=== PATIENT | female | born 1955 | race Caucasian/White ===

== ENCOUNTER 2020-03-18 00:33 | Observation (INO) | payer BC ==
[~2020-03-18] VITALS: Ht 180.3 cm; Wt 119.0 kg
--- NOTE | 2020-03-18 01:20 | NUR ---
BY WC TO ROOM
[2020-03-18 02:13] LABS: HEMATOCRIT 44.7 % (37.0-47.0); HEMOGLOBIN 13.9 g/dl (12.0-16.0); IMMATURE GRANULOCYTES 0.3 % (0.0-5.0); MEAN CELL VOLUME 95.1 fL CALC (80.0-100.0); MEAN CORPUSCULAR HGB 29.6 pG CALC (26.0-32.0); MEAN CORPUSCULAR HGB CONC 31.1 g/dL CAL (32.0-36.0); NEUT# 2.69 thou/uL (2.00-7.15); RED BLOOD COUNT 4.7 mill/uL (4.20-5.60); RED CELL DISTRI WIDTH 13.1 % (11.5-15.5)
[2020-03-18 02:35] LABS: ALBUMIN 4.4 g/dL (3.2-5.0); ALKALINE PHOSPHATASE 108 u/l (38-126); AMYLASE 77 u/l (30-110); ANION GAP 11 (6-22 (CALC)); BILIRUBIN, TOTAL 0.5 mg/dL (0.0-1.4); BUN 25 mg/dL (8-23); BUN/CREATININE RATIO 22 (12-20 (CALC)); CARBON DIOXIDE 32 mmol/l (22-30); CHLORIDE 101 mmol/l (95-108); CREATININE 1.1 mg/dL (0.5-1.0); GFR 50 ML/MIN (>=60 (CALC)); GFR FOR AFR.AMER. > 60 ML/MIN (>=60 (CALC)); LIPASE 136 u/l (23-300); POTASSIUM 3.9 mmol/l (3.5-5.1); SGOT/AST 49 u/l (9-36); SODIUM 140 mmol/l (137-146)
[2020-03-18 02:47] LABS: MYOGLOBIN 43 ng/mL (0 - 62)
[2020-03-18] MEDS ORDERED: PRILOSEC OTC20 MG PO (02:47)
[2020-03-18] MEDS ORDERED: VITAMIN D2000 UNI1 PO (02:48)
--- NOTE | 2020-03-18 03:20 | NUR ---
ADVISED PT OF POSITIVE COVID TEST.
--- NOTE | 2020-03-18 04:30 | NUR ---
RESTING QUIETLY. AWAITING TEST RESULTS
[2020-03-18 04:56] LABS: URINE BILIRUBIN - DIPSTICK NEGATIVE (NEGATIVE); URINE BLOOD DIPSTICK NEGATIVE (NEGATIVE); URINE COLOR YELLOW; URINE GLUCOSE - DIPSTICK NEGATIVE (NEGATIVE); URINE KETONE 15 mg/dL (NEGATIVE); URINE LEUK ESTERASE NEGATIVE (NEGATIVE); URINE NITRITE - DIPSTICK POSITIVE (Negative); URINE PH 5.5 (4.5-8.0); URINE PROTEIN - DIPSTICK TRACE mg/dL (NEG-TRACE); URINE SPECIFIC GRAVITY 1.025; URINE UROBILINOGEN - DIPSTICK 0.2 E.U./dL (0.2)
[2020-03-18 05:12] LABS: URINE MUCUS FEW hpf (NONE-FEW); URINE RBC 0-2 RBC/hpf (0-5); URINE SQUAMOUS EPITHELIAL CELL FEW EPI/hpf (0-FEW)
[2020-03-18 05:13] LABS: URINE BACTERIA MANY hpf
--- NOTE | 2020-03-18 05:30 | NUR ---
ADMISSION DISCUSSED WITH MD. AWAITING ROOM ASSIGNMENT.
--- NOTE | 2020-03-18 07:10 | NUR ---
PATIENT RESTING IN STRETCHER IN NAD AND DENIES ANY COMPLAITNS AT THIS TIME. CALL BEJARANO WITHIN REACH.
--- NOTE | 2020-03-18 07:23 | NUR ---
Admission Note Report Given to: LUBA CORONADO Transported by: Y Wheelchair Stretcher Transported with: Y Nurse Transporter Y Patent IV O2 Y Hearing Instrument Specialist Location: ICU Y [facility]
--- NOTE | 2020-03-18 07:32 | NUR ---
PT ARRIVED VIA WC WITH STAFF. NO DISTRESS NOTED. AMBULATED TO THE BED .
[2020-03-18 07:45] VITALS: BP 143/84
--- NOTE | 2020-03-18 08:30 | NUR ---
ASSESSMENT IS COMPLETED: IV SITE IS FREE FROM REDNESS OR EDEMA. HR IS REG,PULSES ARE STRONG X4, ABD IS SOFT WITH ACTIVE BS. BREATH SOUNDS ARE CLEAR,BILATERALLY, NO C/O NAUSEA AT THIS TIME. CONTINUE TO OSBERVE AND MONITOR
--- NOTE | 2020-03-18 09:00 | NUR ---
PT IS CONCERNED ABOUT NOT GETTING HER HOME MEDICATIONS. INFORMED PT THE DR IS CHECKING EVERYTHING. VERBALIZED UNDERSTANDING.
[2020-03-18 11:18] VITALS: BP 164/88
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
[2020-03-18 15:20] VITALS: BP 180/97
--- NOTE | 2020-03-18 15:32 | NUR ---
BP IS 180/97 HAVING A RN TO GIVE APPRESOLINE IV.
--- NOTE | 2020-03-18 15:40 | NUR ---
5MG APRESSOLINE GIVEN IV BY Alexei Robles RN.
--- NOTE | 2020-03-18 16:15 | NUR ---
PT IS RELAXING IN THE CHAIR. NO DISTRESS NOTED. IV SITE IS FREE FROM REDNESS OR EDEMA.
[2020-03-18 17:40] VITALS: BP 140/80
[2020-03-18 19:30] VITALS: BP 93/52
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
[2020-03-19 00:11] VITALS: BP 117/75
--- NOTE | 2020-03-19 00:23 | NUR ---
IVF REPLENISHED AT THIS TIME. PT DENIES ANY OTHER NEEDS. SHE IS AWAKE AND WATCHING TV. NO S/O DISTRESS. DRY COUGH AT OBSERVED AT THIS TIME.
--- NOTE | 2020-03-19 03:40 | NUR ---
PT IS SLEEPING AT THIS TIME. NO S/O DISTRESS NOTED. LIGHTS OFF AND TV ON LOW
[2020-03-19 04:10] VITALS: BP 103/64
--- NOTE | 2020-03-19 05:26 | NUR ---
IV ANTIBIOTIC THERAPY ADMINISTERED AT THIS TIME. PT IS SLEEPING, NO S/O DISTRESS NOTED AT THIS TIME.
[2020-03-19 07:50] LABS: IMMATURE GRANULOCYTES 0.3 % (0.0-5.0); MEAN CELL VOLUME 96.7 fL CALC (80.0-100.0); MEAN CORPUSCULAR HGB 30.2 pG CALC (26.0-32.0); MEAN CORPUSCULAR HGB CONC 31.2 g/dL CAL (32.0-36.0); NEUT# 1.45 thou/uL (2.00-7.15); RED BLOOD COUNT 3.91 mill/uL (4.20-5.60); RED CELL DISTRI WIDTH 13.2 % (11.5-15.5)
[2020-03-19 07:52] LABS: HEMATOCRIT 37.8 % (37.0-47.0); HEMOGLOBIN 11.8 g/dl (12.0-16.0)
[2020-03-19 08:10] VITALS: BP 92/65
--- NOTE | 2020-03-19 08:10 | NUR ---
ASSESSMENT IS COMPLETED: IV SITE IS FREE FROM REDNESS OR EDEMA. HR IS REG,PULSES ARE STRONG X4, ABD IS SOFT WITH ACTIVE BS. BREATHS OUNDS ARE CLEAR BILATERALLY,NO C.O SOB. TELE MONITOR IN PLACE.
[2020-03-19 08:27] LABS: ALBUMIN 3.6 g/dL (3.2-5.0); ALKALINE PHOSPHATASE 81 u/l (38-126); ANION GAP 9 (6-22 (CALC)); BILIRUBIN, TOTAL 0.4 mg/dL (0.0-1.4); BUN 17 mg/dL (8-23); BUN/CREATININE RATIO 17 (12-20 (CALC)); C-REACTIVE PROTEIN < 0.5 mg/dL (0-0.9); CARBON DIOXIDE 29 mmol/l (22-30); CHLORIDE 106 mmol/l (95-108); GFR 56 ML/MIN (>=60 (CALC)); GFR FOR AFR.AMER. > 60 ML/MIN (>=60 (CALC)); POTASSIUM 4.3 mmol/l (3.5-5.1); SGOT/AST 33 u/l (9-36); SODIUM 140 mmol/l (137-146)
[2020-03-19 09:06] LABS: TOTAL PROTEIN 6.3 g/dL (6.3-8.2)
[2020-03-19 11:05] VITALS: BP 85/57; BP 86/67
--- NOTE | 2020-03-19 12:00 | NUR ---
PT HAS BEEN RELAXING IN BED WITH MO DISTRESS NOTED. IV SITE IS FREE FROM REDNESS OR EDEMA.
[2020-03-19] MEDS ORDERED: DEXAMETHASON6 MG PO (12:14)
[2020-03-19] MEDS ORDERED: ZITHROMAX250 MG PO (12:14)
[2020-03-19] MEDS ORDERED: KEFLEX500 MG PO (12:28)
--- NOTE | 2020-03-19 12:30 | NUR ---
AMBULATED PT IN THE [place] WITH NO O2 SATS 95-97% ON RA. NO DISTRESS NOTED. IV SITE INTACT.
--- NOTE | 2020-03-19 13:55 | NUR ---
IV SITE DISCONTINUED CATHETET INTACT AND ALSO TELE MONITOR TAKEN OFF.
--- NOTE | 2020-03-19 14:00 | NUR ---
IV SITE DISCONTINUED CATHETER INTACT. NO REDNESS OR EDEMA. DISCHARGE INSTRUCTIONS GIVEN AND VERBALIZED UNDERSTANDING. FAMILY IS ON THEIR WAY TO TRANSPORT PT HOME. Discharge instructions given. Patient verbalizes understanding of same. Discharged in stable condition via Wheelchair to Home with family. All belongings sent with pt.
--- NOTE | 2020-03-23 14:33 | NUR ---
POST DISCHARGE FOLLOW UP CALL COMPLETED TODAY, 03/23/20. PT STATES SHE IS DOING WELL BUT STILL EXPERIENCING FATIGUE AND MILD SORE THROAT. PT HAD LOW GRADE FEVER MONDAY MORNING BUT NOTHING SINCE THAT TIME. FOLLOW UP APPT IS SCHEDULED FOR MONDAY, 03/26. DISCHARGE MEDICATIONS WERE OBTAINED AND TAKEN WITHOUT DIFFICULTY. NO OTHER QUESTIONS OR CONCERNS EXPRESSED BY PATIENT.
== END 2020-03-19 14:05 | disposition home or self-care (01) | DRG 177 ==
LOC: ED 00:33 → ED-I 04:55 → ED 05:13 → MS2 05:14
PROVIDERS: Emergency Medicine; Nurse Practitioner Family; ADMIT Internal Medicine; ATTEND Internal Medicine
DX: U07.1 COVID-19 (principal); J12.82 Pneumonia due to coronavirus disease 2019; N39.0 Urinary tract infection, site not specified; E86.0 Dehydration; I10 Essential (primary) hypertension; K21.9 Gastro-esophageal reflux disease without esophagitis; G51.0 Bell's palsy; G40.909 Epilepsy, unspecified, not intractable, without status epilepticus; M19.90 Unspecified osteoarthritis, unspecified site; K58.9 Irritable bowel syndrome, unspecified; B96.20 Unspecified Escherichia coli [E. coli] as the cause of diseases classified elsewhere; I95.9 Hypotension, unspecified
CPT/HCPCS: G0378; J1650; Q9967

== ENCOUNTER 2024-05-18 05:43 | Emergency (ER) | payer MEDICARE ==
[~2024-05-18] VITALS: Ht 180.3 cm; Wt 111.1 kg
[~2024-05-18 05:43] MED LIST: DEXAMETHASON6 MG PO; KEFLEX500 MG PO; PRILOSEC OTC20 MG PO; VITAMIN D2000 UNI1 PO; ZITHROMAX250 MG PO
[2024-05-18] MEDS ORDERED: SODIUM CHLORIDE 0.9% 1,000 ML IV ONE (06:00)
[2024-05-18] MEDS ORDERED: ONDANSETRON HCl 4 MG/2 ML SDV IV ONE ×2 (06:00→06:45)
[2024-05-18 06:20] VITALS: BP 173/105
[2024-05-18 06:27] LABS: EOS% 0.1 % (0-8); HEMATOCRIT 42.1 % (37.0-47.0); HEMOGLOBIN 13.4 g/dl (12.0-16.0); IMMATURE GRANULOCYTES 0.1 % (0.0-5.0); LYMPH% 3.1 % (15-41); MEAN CORPUSCULAR HGB 30.9 pG CALC (26.0-32.0); MEAN CORPUSCULAR HGB CONC 31.8 g/dL CAL (32.0-36.0); MONO% 4.7 % (2-13); NEUT# 14.09 thou/uL (2.00-7.15); RED BLOOD COUNT 4.34 mill/uL (4.20-5.60); RED CELL DISTRI WIDTH 12.6 % (11.5-15.5)
[2024-05-18 06:33] LABS: CREATININE 1.1 mg/dL (0.5-1.0); POTASSIUM 3.6 mmol/l (3.5-5.1)
[2024-05-18 06:35] LABS: ALBUMIN 4.7 g/dL (3.2-5.0); BILIRUBIN, TOTAL 0.8 mg/dL (0.02-1.3); TOTAL PROTEIN 7.9 g/dL (6.3-8.2)
[2024-05-18] MEDS ORDERED: ZOFRAN4 MG/TAB PO (06:44)
[2024-05-18 07:01] VITALS: BP 162/89
== END 2024-05-18 07:09 | disposition home or self-care (01) ==
LOC: ED 05:43
PROVIDERS: Family Medicine
DX: K52.9 Noninfective gastroenteritis and colitis, unspecified (principal); K21.9 Gastro-esophageal reflux disease without esophagitis
CPT/HCPCS: J2405